=== PATIENT | male | born 1990 | race Caucasian/White ===

== ENCOUNTER 2016-04-13 10:30 | Emergency (ER) | payer BC ==
--- NOTE | 2016-04-13 12:10 | ED NURSING NOTES ---
Clinical Report - Nurses [facility] [address] [place] [address] 04/13/2016 10:32 Patient: THONG AGUILAR TRIAGE Triage time 10:38 Apr 13 2016. Acuity: LEVEL 4. Chief Complaint: "FLU", FEVER, COUGH, SORE THROAT and BODY ACHES. SEPSIS SCREEN: Sepsis Screen. Negative (no infection suspected/documented). --10:42 Abel Salmeron R.N. 10:38 04/13/16. BP: 119/74. HR: 101. RR: 18. O2 saturation: 99% on room air. Temp: 98.8 F. Pain level now: 0/10. --10:42 Abel Salmeron R.N. Weight: 82.5 kg stated. Height/Length: 73 inches Per Patient. BMI: 24. --10:38 Abel Salmeron R.N. Medications Vyvanse Oral. --11:20 Abel Salmeron R.N. Allergies No Known Drug Allergy. --11:20 Abel Salmeron R.N. History Arrived by private vehicle. Historian: patient. Accompanied by family. This started yesterday. ( Syncope this morning when he got up to use the restroom.). PAST MEDICAL HX: No history of pneumonia, asthma or diabetes mellitus. Immunizations: up-to-date. ( No flu shot this year.). SOCIAL HX: Never smoker. Occasional alcohol use; consumes liquor occasionally. Last drink was less than 24 hours ago. No recent travel. No infectious disease exposure. No known contact with a sick individual. FALL RISK ASSESSMENT: Fall risk assessment completed. No fall risk identified. NUTRITIONAL RISK ASSESSMENT: The nutritional risk assessment revealed no deficiencies. FUNCTIONAL ASSESSMENT: Functional assessment: no impairments noted. LEARNING NEEDS ASSESSMENT: The learning needs assessment revealed no barriers. SKIN INTEGRITY ASSESSMENT: Skin integrity risk assessment completed. No skin integrity risk identified. --10:42 Abel Salmeron R.N. Interventions ID band on patient. To treatment room. --10:42 Abel Salmeron R.N. PHYSICAL ASSESSMENT Ambulatory to room. GENERAL / NEURO / PSYCH: Alert. Oriented X 4. Appears in distress. RESPIRATORY: Mild respiratory distress. SKIN: Skin is pale. --:43 Abel Salmeron R.N. NURSING PROGRESS NOTES <<STRICKEN ENTRY-- Flu swab obtained. Two patient identifiers checked. Call light placed in reach. Bed placed in lowest position. Patient ready for evaluation- chart flagged and ED physician notified. --: Abel Salmeron R.N. --END STRIKE>> Correction --11: Abel Salmeron R.N. EKG time: (11:00 AM). EKG was performed by a tech and shown to the ED physician. --11:04 Alicia Vargas 10:43 04/13/16. Throat swab obtained. Two patient identifiers checked. Call light placed in reach. Bed placed in lowest position. --11:22 Abel Salmeron R.N. 11:04/13/2016 Site #1 started via IV in the right antecubital space with an 20g angiocath, with aseptic technique and good blood return; one attempt. Blood drawn: rainbow set. Labeled in the presence of the patient and sent to the lab. Saline lock flushed with 10 mL saline. --11: Abel Salmeron R.N. 11:04/13/2016 Started bag #1 1000 mL IV Fluids IV NS (Saline); bolus of 1000 mL wide open via site #1 via IV pump. Allergies verified and confirmed 5 rights. IV patency established. IV site checked: no pain, redness, or swelling. IV flushed thoroughly pre- and post-medication administration. --11: Abel Salmeron R.N. Critical value relayed to ED by Lab. Critical value received by Abel CADENA 11:25 Apr 13 2016. Positive Step A. ED physician notifed of critical value (Dr. Wright). Orders were received. --11:25 Abel Salmeron R.N. 12:04/13/16. BP: 112/69. HR: 105. RR: 18. O2 saturation: 100% on room air. Temp: 98.5 F. --12:08 Abel Salmeron R.N. 12:04/13/2016 IV Fluids IV NS Bag Change: bag #1 infused. Total amount infused: 1000. STARTED bag #2 (1000 mL) at 1000 mL/hr. Confirmed 5 rights. IV patency established. IV site checked: no pain, redness, or swelling. IV flushed thoroughly. --12:08 Abel Salmeron R.N. 12:18 04/13/2016 Started 2 gm of Rocephin (CefTRIAXone Sodium) IVPB; at 250 mL/hr via site #1 via IV pump. Allergies verified and confirmed 5 rights. IV patency established. IV site checked: no pain, redness, or swelling. IV flushed thoroughly pre- and post-medication administration. --12:18 Abel Salmeron R.N. 12:40 04/13/2016 IV Fluids IV NS Discontinued: bag #2 completed upon discharge. Total amount infused: 800 mL. IV patency established. IV site checked: no pain, redness, or swelling. IV flushed thoroughly. --12:45 Abel Salmeron R.N. 12:40 04/13/2016 Rocephin IVPB Discontinued: bag #1 infused upon discharge. Total amount infused: 50 mL. IV patency established. IV site checked: no pain, redness, or swelling. IV flushed thoroughly. --12:46 Abel Salmeron R.N. 12:42 04/13/2016 Site #1 removed upon discharge. Manual pressure and bandage applied. --12:46 Abel Salmeron R.N. DISPOSITION / DISCHARGE 12:38 04/13/16. BP: 120/74. HR: 96. RR: 16. O2 saturation: 100% on room air. Temp: 98.8 F. Pain level now: 0/10. --12:38 Abel Salmeron R.N. Departure time: 12:44 Apr 13 2016. Condition at departure: improved and stable. The goals identified in the patient's plan of care were met. No learning barriers present. Discharge instructions provided and reviewed with the patient and family. Reviewed warnings (Directed not to drive while taking hydrocodone Rx.). Reviewed medication(s) side effects, precautions, dosing and course information. Prescription(s) given to the patient. Work note given. Patient and family verbalized understanding. Written instructions provided in [place]. The patient was discharged by the physician. He was discharged home and accompanied by family. He left the Emergency Department ambulatory and via private vehicle. Spouse driving. --12:44 Abel Salmeron R.N. Locked/Released at 04/13/2016 12:47 by Abel Salmeron R.N.
--- NOTE | 2016-04-13 12:10 | ED ORDER SUMMARY ---
..... Patient: THONG AGUILAR OrderSheet [facility] VisitID: [id number] [address] [place] [address] 25y, M Registration Date/Time: 04/13/2016 ORDER SHEET Weight: 82.5 kg (stated) Allergies: No Known Drug Allergy GENERAL ORDERS: CBC w Diff Urgent (10:53 04/13/[address]) (Ack 11:05 LNations ER Tech1) (11:07 MCswatik R.N.) CMP Urgent (10:53 04/13/[address]) (Ack 11:06 LNations ER Tech1) (11:07 Juancarlos R.N.) EKG - ER Stat (10:53 04/13/[address]) (11:03 RKjosias) Culture, Strep Screen Urgent (10:54 04/13/[address]) (Ack 11:06 LNations ER Tech1) (11:08 Juancarlos R.N.) MEDICATION ORDERS: IV FLUIDS: IV NS : initial bolus 1000 mL (1000 mL/hr), then 1000 mL/hr for X1 (NOW); Routine (10:53 04/13/[address]) (11:09 Juancarlos R.N.) Rocephin IV 2 gm/50mL (NOW) (12:07 04/13/[address]) (12:18 Juancarlos R.N.) ORDER SHEET NOTES: [Electronically signed by Abel Salmeron R.N. (12:47 04/13/2016)] [Electronically signed by Abdi Wright MD (21:02 04/15/2016)] [Electronically locked/signed by Abel Salmeron R.N. (12:47 04/13/2016)]
--- NOTE | 2016-04-13 12:10 | ED CLINICAL REPORT ---
Clinical Report - Physicians/Mid Levels [facility] [address] [place] [address] 04/13/2016 10:32 Patient: THONG AGUILAR Time Seen: 10:47 Apr 13 2016. Arrived- By private vehicle. Historian- patient. CPT: ER phys charges level 5 plus (#[id number]). EKG interpretation (#[id number]). HISTORY OF PRESENT ILLNESS Chief Complaint: SORE THROAT, FEVER, CHILLS and MUSCLE ACHES. This started yesterday This started yesterday. ( Syncope this morning when he got up to use the restroom.). and is still present. No cough, sputum production, difficulty breathing or chest discomfort or pain. No nasal congestion or discharge. He has had a sore throat, hoarseness, fever, chills and muscle aches. Additional history - The patient has had contact with a sick child. Symptoms of the sick contact include sore throat. (Confirmed strep.). They have had similar symptoms. Similar symptoms previously: As bad. Diagnosis: tonsillitis. Recent medical care: Not recently seen/assessed. REVIEW OF SYSTEMS The patient has had a headache. No eye discomfort, nausea, vomiting, diarrhea or abdominal pain. No pedal edema, calf pain, difficulty with urination, skin rash or enlarged lymph nodes. No joint pain. All systems otherwise negative, except as recorded above. PAST HISTORY No history of pneumonia, asthma or diabetes mellitus. Immunizations: up-to-date. ( No flu shot this year.). Hx strep throat. SOCIAL HISTORY Never smoker. Occasional alcohol use. No drug use. ADDITIONAL NOTES The nursing notes have been reviewed. PHYSICAL EXAM Vital Signs: 04/13/2016 10:38 BP: 119/74. HR: 101. RR: 18. O2 saturation: 99%. Temp: 98.8 F. Pain level now: 0/10. Appearance: Alert. No acute distress. Eyes: Pupils equal, round and reactive to light. Eyes normal inspection. ENT: Ears normal. Nose normal. Pharyngeal erythema. Right-sided tonsillar exudate and swelling. Left-sided tonsillar exudate and swelling. Uvula midline. Neck: Normal inspection. Neck supple. CVS: Normal heart rate and rhythm. Heart sounds normal. Pulses normal. Respiratory: No respiratory distress. Breath sounds normal. Abdomen: Soft and nontender. Back: Normal inspection. Skin: Skin warm. Normal skin color. No rash. Extremities: Extremities exhibit normal ROM. No lower extremity edema. Neuro: Oriented X 3. No motor deficit. No sensory deficit. Reflexes normal. LABS, X-RAYS, AND EKG EKG: Normal sinus rhythm. Normal P waves. Normal LELAND. Wide QRS- intraventricular conduction delay. Normal axis. Normal ST and T waves. Prior EKG unavailable. The study has been interpreted contemporaneously. The study has been independently viewed by me. The EKG appears to be a good tracing. Laboratory Tests: CBC w Diff: (ELIE: 04/13/2016 11:00) ( MsgRcvd 04/13/2016 11:18) Final results Test Result Flag Units (Reference) WHITE BLOOD COUNT 11.8 H K/uL (4.5-11.5) RED BLOOD COUNT 4.32 L M/uL (4.50-5.90) HEMOGLOBIN 13.5 gm/dL (13.5-17.5) HEMATOCRIT 39.0 L % (41.0-53.0) MEAN CELL VOLUME 90 fL (80-100) MEAN CORPUSCULAR HGB 31 pg (26-34) MEAN CORPUSCULAR HGB CONC 35 g/dL (31-37) RED CELL DISTRIBUTION WIDTH 12.6 % (11.6-14.8) PLATELET COUNT 160 K/uL (150-400) NEUTROPHIL % 86.0 H % (50-75) LYMPH % 7.0 L % (25-40) MONO % 6.8 % (3-14) EOSINOPHIL % 0 % (0-4) BASOPHIL % 0.2 % (0-2) CMP: (ELIE: 04/13/2016 11:00) ( MsgRcvd 04/13/2016 11:30) Final results Test Result Flag Units (Reference) GLUCOSE 154 H mg/dL (70-110) BUN 10 mg/dL (7-18) CREATININE 1.0 mg/dL (0.6-1.3) Estimated GFR >60 mL/min Estimated GFR- >60 mL/min Note: Persistent reduction over 3 months in eGFR<60 mL/min/1.73 m2 defines CKD. Patients with eGFR values>=60 mL/min/1.73 m2 may also have CKD if evidence ofpersistent proteinuria. Additional information may be foundat www.kidney.org. SODIUM 137 mmol/L (136-145) POTASSIUM 3.7 mmol/L (3.5-5.1) CHLORIDE 103 mmol/L (98-107) CARBON DIOXIDE 23 mmol/L (21-32) CALCIUM 8.6 mg/dL (8.5-10.1) TOTAL PROTEIN 7.4 g/dL (6.4-8.2) ALBUMIN 3.6 g/dL (3.3-5.0) BILIRUBIN, TOTAL 0.6 mg/dL (0.0-1.0) ALKALINE PHOSPHATASE 96 U/L (46-116) AST (SGOT) 18 U/L (15-37) ALT (SGPT) 26 U/L (12-78) Culture, Strep Screen: (ELIE: 04/13/2016 11:00) ( MsgRcvd 04/13/2016 11:24) Final results Test Result Flag Units (Reference) RAPID STREP SCREEN - THROAT CALLED TO: DALLIN IRVIN RN -- DATE: 04/13/16 POSITIVE SCREEN: RAPID STREP SCREEN: POSITIVE FOR GROUP A STREP . PROGRESS AND PROCEDURES Course of Care: IV NS 1 liter Rocephin 2g IV. Patient/family counseled. Disposition: Discharged. Condition: stable and improved. CLINICAL IMPRESSION Acute streptococcal tonsillitis. No recurrent tonsillitis. Dehydration with near syncope. INSTRUCTIONS Do not work for two days until better. Drink plenty of fluids. Warnings: Further evaluation is necessary. GENERAL WARNINGS: Return or contact your physician immediately if your condition worsens or changes unexpectedly, if not improving as expected, or if other problems arise. Your Current Medications: CONTINUE TAKING THE FOLLOWING MEDICATIONS: Vyvanse Oral. Prescription Medications: Augmentin 875 mg: take 1 tablet orally every 12 hours for 7 days. Dispense fourteen (14). No refills. Substitution is permissible. Hydrocodone / APAP Liquid 7.5mg/325mg/15 mL: take ten (10) mL orally every 4 hours as needed for pain. Dispense two hundred (200) mL. No refill. Follow-up: Follow up with your doctor in two days if not better. Understanding of the discharge instructions verbalized by patient and family. (Electronically signed by Abdi Wright MD 04/15/2016 21:02)
--- NOTE | 2016-04-13 12:10 | ED ORDER SUMMARY ---
..... Patient: THONG AGUILAR OrderSheet [facility] VisitID: [id number] [address] [place] [address] 25y, M Registration Date/Time: 04/13/2016 ORDER SHEET Weight: 82.5 kg (stated) Allergies: No Known Drug Allergy GENERAL ORDERS: CBC w Diff Urgent (10:53 04/13/[address]) (Ack 11:05 LNations ER Tech1) (11:07 MCswatik R.N.) CMP Urgent (10:53 04/13/[address]) (Ack 11:06 LNations ER Tech1) (11:07 Juancarlos R.N.) EKG - ER Stat (10:53 04/13/[address]) (11:03 RKjosias) Culture, Strep Screen Urgent (10:54 04/13/[address]) (Ack 11:06 LNations ER Tech1) (11:08 Juancarlos R.N.) MEDICATION ORDERS: IV FLUIDS: IV NS : initial bolus 1000 mL (1000 mL/hr), then 1000 mL/hr for X1 (NOW); Routine (10:53 04/13/[address]) (11:09 Juancarlos R.N.) Rocephin IV 2 gm/50mL (NOW) (12:07 04/13/[address]) (12:18 Juancarlos R.N.) ORDER SHEET NOTES: [Electronically signed by Abel Salmeron R.N. (12:47 04/13/2016)] [Electronically signed by Abdi Wright MD (21:02 04/15/2016)] [Electronically locked/signed by Abel Salmeron R.N. (12:47 04/13/2016)]
--- NOTE | 2016-04-15 21:03 | ED MED RECONCILIATION SUMMARY ---
Patient: THONG AGUILAR Medication Reconciliation Report [facility] VisitID: [id number] [address] [place] [address] 25y, M Registration Date/Time: 04/13/2016 Weight: 82.5 kg Height/Length: 73 in. BMI: 24.0 ALLERGIES: No Known Drug Allergy The patient's Home Medications are listed below: CONTINUE TAKING THE FOLLOWING MEDICATIONS: Vyvanse Oral The source(s) of the original Home Medication information: Not obtained. The following Medications were given to the patient in the Emergency Department: IV NS IV Fluids bolus 1000 mL wide open, administered: 04/13/2016 11:09:00 AM Rocephin [IVPB] IVPB bolus 0, then 2 gm 250 mL/hr, administered: 04/13/2016 12:18:00 PM The following Medications were prescribed to the patient: Augmentin 875 mg: take 1 tablet orally every 12 hours for 7 days. Dispense fourteen (14). No refills. Substitution is permissible. -- Abdi Wright MD Hydrocodone / APAP Liquid 7.5mg/325mg/15 mL: take ten (10) mL orally every 4 hours as needed for pain. Dispense two hundred (200) mL. No refill. -- Abdi Wright MD
--- NOTE | 2016-04-15 21:03 | ED MAR SUMMARY ---
..... Medication Administration Record [facility] [address] [place] [address] Patient: THONG AGUILAR Visit ID: [id number] 25y, M Weight: 82.5 kg Height/Length: 73 in BMI: 24 ALLERGIES: No Known Drug Allergy Start 11:09 04/13/2016 Abel Salmeron R.N., Stop 12:40 04/13/2016 Abel Salmeron R.N. Medication Administered: IV NS (SALINE), Dose: IV Fluids, Bolus: 1000 mL wide open, Dispensed: 1000 mL bag, Site: #1 right AC. Medication Ordered: IV NS : initial bolus 1000 mL (1000 mL/hr), then 1000 mL/hr for X1 (NOW); Routine. Start 12:18 04/13/2016 Abel Salmeron R.N., Stop 12:40 04/13/2016 Abel Salmeron R.N. Medication Administered: ROCEPHIN [IVPB] (CEFTRIAXONE SODIUM), Dose: 2 gm IVPB, Rate: 250 mL/hr, Site: #1 right AC. Medication Ordered: Rocephin IV 2 gm/50mL (NOW).
--- NOTE | 2016-04-15 21:03 | ED MED RECONCILIATION SUMMARY ---
Patient: THONG AGUILAR Medication Reconciliation Report [facility] VisitID: [id number] [address] [place] [address] 25y, M Registration Date/Time: 04/13/2016 Weight: 82.5 kg Height/Length: 73 in. BMI: 24.0 ALLERGIES: No Known Drug Allergy The patient's Home Medications are listed below: CONTINUE TAKING THE FOLLOWING MEDICATIONS: Vyvanse Oral The source(s) of the original Home Medication information: Not obtained. The following Medications were given to the patient in the Emergency Department: IV NS IV Fluids bolus 1000 mL wide open, administered: 04/13/2016 11:09:00 AM Rocephin [IVPB] IVPB bolus 0, then 2 gm 250 mL/hr, administered: 04/13/2016 12:18:00 PM The following Medications were prescribed to the patient: Augmentin 875 mg: take 1 tablet orally every 12 hours for 7 days. Dispense fourteen (14). No refills. Substitution is permissible. -- Abdi Wright MD Hydrocodone / APAP Liquid 7.5mg/325mg/15 mL: take ten (10) mL orally every 4 hours as needed for pain. Dispense two hundred (200) mL. No refill. -- Abdi Wright MD
--- NOTE | 2016-04-15 21:03 | ED MAR SUMMARY ---
..... Medication Administration Record [facility] [address] [place] [address] Patient: THONG AGUILAR Visit ID: [id number] 25y, M Weight: 82.5 kg Height/Length: 73 in BMI: 24 ALLERGIES: No Known Drug Allergy Start 11:09 04/13/2016 Abel Salmeron R.N., Stop 12:40 04/13/2016 Abel Salmeron R.N. Medication Administered: IV NS (SALINE), Dose: IV Fluids, Bolus: 1000 mL wide open, Dispensed: 1000 mL bag, Site: #1 right AC. Medication Ordered: IV NS : initial bolus 1000 mL (1000 mL/hr), then 1000 mL/hr for X1 (NOW); Routine. Start 12:18 04/13/2016 Abel Salmeron R.N., Stop 12:40 04/13/2016 Abel Salmeron R.N. Medication Administered: ROCEPHIN [IVPB] (CEFTRIAXONE SODIUM), Dose: 2 gm IVPB, Rate: 250 mL/hr, Site: #1 right AC. Medication Ordered: Rocephin IV 2 gm/50mL (NOW).
--- NOTE | 2016-04-15 21:03 | ED DISCHARGE INSTRUCTIONS ---
Patient: THONG AGUILAR General Instructions [facility] VisitID: [id number] [place] [address] 25y, M Registration Date/Time: 04/13/2016 Acute streptococcal tonsillitis. No recurrent tonsillitis. Dehydration with near syncope. INSTRUCTIONS Do not work for two days until better. Drink plenty of fluids. Warnings: Further evaluation is necessary. GENERAL WARNINGS: Return or contact your physician immediately if your condition worsens or changes unexpectedly, if not improving as expected, or if other problems arise. Your Current Medications: CONTINUE TAKING THE FOLLOWING MEDICATIONS: Vyvanse Oral. Prescription Medications: Augmentin 875 mg: take 1 tablet orally every 12 hours for 7 days. Dispense fourteen (14). No refills. Substitution is permissible. Hydrocodone / APAP Liquid 7.5mg/325mg/15 mL: take ten (10) mL orally every 4 hours as needed for pain. Dispense two hundred (200) mL. No refill. Follow-up: Follow up with your doctor in two days if not better. Understanding of the discharge instructions verbalized by patient and family. ADDITIONAL INFORMATION Pharyngitis: Strep [Presumed] Your illness has the signs of a strep throat infection. Strep throat is a contagious illness. It is spread by coughing, kissing or by touching others after touching your mouth or nose. Symptoms include throat pain worse with swallowing, aching all over, headache and fever. You will be treated with an antibiotic, which should make you start to feel better within 1-2 days. Home Care: Rest at home and drink plenty of fluids to avoid dehydration. No school or work for the first two days on antibiotics. You will not be contagious after this time, and if you are feeling better, you can return to school or work. Take your antibiotics for a full 10 days, even if you feel better after the first few days of treatment. This is very important to prevent complications from the strep infection (such as heart or kidney disease). Children: Use acetaminophen (Tylenol) for fever, fussiness or discomfort. In infants over six months of age, you may use ibuprofen (Children's Motrin) instead of Tylenol. [NOTE: If your child has chronic liver or kidney disease or ever had a stomach ulcer or GI bleeding, talk with your doctor before using these medicines.] (Aspirin should never be used in anyone under 18 years of age who is ill with a fever. It may cause severe liver damage.) Adults: You may use acetaminophen (Tylenol) or ibuprofen (Motrin, Advil) to control pain or fever, unless another medicine was prescribed for this. [NOTE: If you have chronic liver or kidney disease or ever had a stomach ulcer or GI bleeding, talk with your doctor before using these medicines.] Throat lozenges or sprays (Chloraseptic and others) will reduce pain. Gargling with warm salt water will also reduce throat pain. Dissolve 1/2 teaspoon of salt in 1 glass of warm water. This is especially useful just before meals. Follow Up with your doctor or as directed by our staff if you are not improving over the next week. Get Prompt Medical Attention if any of the following occur: Fever over 100.5F (38.0C) oral, or over 101.5F (38.6C) rectal for more than three days New or worsening ear pain, sinus pain or headache Painful lumps in the back of your neck Unable to swallow liquids or open your mouth wide due to throat pain Trouble breathing or noisy breathing Muffled voice New rash Hydrocodone Bitartrate, Acetaminophen Oral solution What is this medicine? ACETAMINOPHEN; HYDROCODONE (a set a BEV niki fen; lorraine droe KOE done) is a pain reliever. It is used to treat mild to moderate pain. How should I use this medicine? Take this medicine by mouth. Use a specially marked spoon or dropper to measure your dose. Ask your pharmacist if you do not have a dropper or measuring spoon. Do not use a household spoon. Follow the directions on the prescription label. If the medicine upsets your stomach, take it with food or milk. Do not take more medicine than you are told to take. Talk to your film and video graphics designer regarding the use of this medicine in children. This medicine is not approved for use in children. What side effects may I notice from receiving this medicine? Side effects that you should report to your doctor or health critical care nurse practitioner as soon as possible: allergic reactions like skin rash, itching or hives, swelling of the face, lips, or tongue breathing problems confusion feeling faint or lightheaded, falls stomach pain yellowing of the eyes or skin Side effects that usually do not require medical attention (report to your doctor or health critical care nurse practitioner if they continue or are bothersome): nausea, vomiting stomach upset What may interact with this medicine? alcohol antihistamines isoniazid medicines for depression, anxiety, or psychotic disturbances medicines for sleep muscle relaxants naltrexone narcotic medicines (opiates) for pain phenobarbital ritonavir tramadol What if I miss a dose? If you miss a dose, take it as soon as you can. If it is almost time for your next dose, take only that dose. Do not take double or extra doses. Where should I keep my medicine? Keep out of the reach of children. This medicine can be abused. Keep your medicine in a safe place to protect it from theft. Do not share this medicine with anyone. Selling or giving away this medicine is dangerous and against the law. Store at room temperature between 20 and 25 degrees C (68 and 77 degrees F). Protect from light. Keep container tightly closed. Throw away any unused medicine after the expiration date. Discard unused medicine and used packaging carefully. Pets and children can be harmed if they find used or lost packages. What should I tell my health care provider before I take this medicine? They need to know if you have any of these conditions: brain tumor Crohn's disease, inflammatory bowel disease, or ulcerative colitis drink more than 3 alcohol-containing drinks per day drug abuse or addiction head injury heart or circulation problems kidney disease or problems going to the bathroom liver disease lung disease, asthma, or breathing problems an unusual or allergic reaction to acetaminophen, hydrocodone, other opioid analgesics, other medicines, foods, dyes, or preservatives or trying to get breast-feeding What should I watch for while using this medicine? Tell your doctor or health critical care nurse practitioner if your pain does not go away, if it gets worse, or if you have new or a different type of pain. You may develop tolerance to the medicine. Tolerance means that you will need a higher dose of the medicine for pain relief. Tolerance is normal and is expected if you take this medicine for a long time. Do not suddenly stop taking your medicine because you may develop a severe reaction. Your body becomes used to the medicine. This does NOT mean you are addicted. Addiction is a behavior related to getting and using a drug for a non-medical reason. If you have pain, you have a medical reason to take pain medicine. Your doctor will tell you how much medicine to take. If your doctor wants you to stop the medicine, the dose will be slowly lowered over time to avoid any side effects. You may get drowsy or dizzy when you first start taking the medicine or change doses. Do not drive, use machinery, or do anything that may be dangerous until you know how the medicine affects you. Stand or sit up slowly. There are different types of narcotic medicines (opiates) for pain. If you take more than one type at the same time, you may have more side effects. Give your health care provider a list of all medicines you use. Your doctor will tell you how much medicine to take. Do not take more medicine than directed. Call emergency for help if you have problems breathing. The medicine will cause constipation. Try to have a bowel movement at least every 2 to 3 days. If you do not have a bowel movement for 3 days, call your doctor or health critical care nurse practitioner. Too much acetaminophen can be very dangerous. Do not take Tylenol (acetaminophen) or medicines that contain acetaminophen with this medicine. Many non-prescription medicines contain acetaminophen. Always read the labels carefully. You have been given the following additional information: Pharyngitis, Strep (Presumed) Hydrocodone Bitartrate, Acetaminophen Oral solution Do not work for two days until better. (Electronically signed by Abdi Wright MD 04/15/2016 21:02)
== END 2016-04-13 10:33 | disposition home or self-care (01) ==
LOC: ED SRH 10:30
DX: J03.00 Acute streptococcal tonsillitis, unspecified (principal); E86.0 Dehydration; R55 Syncope and collapse
CPT/HCPCS: 90100; 90154; 95059